=== PATIENT | female | born 1985 | race Two or more races ===

== ENCOUNTER 2019-11-02 09:44 | Emergency (ER) | payer MEDICAID ==
[~2019-11-02] VITALS: Ht 167.6 cm; Wt 82.6 kg
[2019-11-02 09:47] VITALS: BP 109/67
--- NOTE | 2019-11-02 10:32 | NUR ---
PT GIVEN DC INSTRUCTIONS AND SCRIPT. PT EDUCATED REGARDING TRIAMCINOLONE CREAM AND MEDROL RX. PT AMB TO DC DESK WITH STEADY GAIT. NADN AT DC.
== END 2019-11-02 10:31 | disposition home or self-care (01) ==
LOC: ED 10:19
DX: L30.8 Other specified dermatitis (principal)
CPT/HCPCS: 99283

== ENCOUNTER 2019-11-24 15:39 | Emergency (ER) | payer MEDICAID ==
[~2019-11-24] VITALS: Ht 167.6 cm; Wt 83.7 kg
[2019-11-24 16:15] VITALS: BP 143/98
[2019-11-24] MEDS ORDERED: NEOSPORIN OINT. PKT 1 PACKET ONE (16:55)
[2019-11-24] MEDS ORDERED: FAMOTIDINE 20 MG/2 ML ONE (19:20)
== END 2019-11-24 17:19 | disposition home or self-care (01) ==
LOC: ED 16:00
DX: L30.9 Dermatitis, unspecified (principal); F17.200 Nicotine dependence, unspecified, uncomplicated
CPT/HCPCS: 99283

== ENCOUNTER 2019-12-09 08:21 | Emergency (ER) | payer MEDICAID ==
[~2019-12-09] VITALS: Ht 167.6 cm; Wt 82.7 kg
[2019-12-09 08:27] VITALS: BP 119/75
--- NOTE | 2019-12-09 08:51 | NUR ---
PT HERE WITH C/O PAIN AND OPEN SORES TO RIGHT HAND, STATES HX ECZEMA.
--- NOTE | 2019-12-09 09:19 | NUR ---
Patient/Caregiver given discharge instructions and they have confirmed that they understand the instructions. Patient ambulatory with steady gait.
== END 2019-12-09 09:22 | disposition home or self-care (01) ==
LOC: ED 09:00
DX: L20.84 Intrinsic (allergic) eczema (principal); F17.210 Nicotine dependence, cigarettes, uncomplicated; J45.909 Unspecified asthma, uncomplicated
CPT/HCPCS: 99283

== ENCOUNTER 2020-03-24 10:05 | Emergency (ER) | payer MEDICAID ==
[~2020-03-24] VITALS: Ht 167.6 cm; Wt 83.3 kg
[2020-03-24 10:26] VITALS: BP 116/64
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
--- NOTE | 2020-03-24 10:50 | NUR ---
covid swab collected by this RN, walked to lab. EKG taken by EDT and reviewed by ERP. pt awaiting labs and dispo.
--- NOTE | 2020-03-24 10:51 | NUR ---
droplet plus precautions in place .
--- NOTE | 2020-03-24 10:58 | NUR ---
REPORT GIVEN TO LARS TINSLEY, PT AWAITING LABS AND DISPO.
[2020-03-24 11:37] LABS: ANION GAP 6 mmol/L (5-15); CALCIUM 8.3 mg/dL (8.5-10.1); CHLORIDE 111 mmol/L (98-107); CREATININE 0.77 mg/dL (0.55-1.02)
== END 2020-03-24 12:11 | disposition home or self-care (01) ==
LOC: ED 10:52
DX: J45.31 Mild persistent asthma with (acute) exacerbation (principal); Z20.828 Contact with and (suspected) exposure to other viral communicable diseases; L20.84 Intrinsic (allergic) eczema; J02.8 Acute pharyngitis due to other specified organisms; B97.89 Other viral agents as the cause of diseases classified elsewhere; I51.7 Cardiomegaly; F17.200 Nicotine dependence, unspecified, uncomplicated
CPT/HCPCS: 36415; 80048; 82375; 93005; 99284; U0001

== ENCOUNTER 2020-04-04 14:18 | Emergency (ER) | payer MEDICAID ==
[~2020-04-04] VITALS: Ht 167.6 cm; Wt 84.2 kg
--- NOTE | 2020-04-04 14:30 | NUR ---
PATIENT ARRIVES TO ER WITH PAIN FROM UPPER MID ABDOMINAL DOWN TO LOWER ABDOMEN BOTH SIDES. NO NAUSEA, DECREASED APPETITE FOR ONE DAY. NO DIARRHEA. SHE HAS HAD VAGINAL DISCHARGE FOR ONE WEEK THAT IS DARK BLOOD. SHE THINKS MAYBE A YEAST INFECTION, BUT NOT SURE.
--- NOTE | 2020-04-04 14:34 | NUR ---
PATIENT STILL HAS SOME PAIN, BUT NOT WORSENING
--- NOTE | 2020-04-04 15:01 | NUR ---
patient helped up to go to bathroom for urine sample. got on pelvic bed.
[2020-04-04 15:05] LABS: BASOPHILS % (AUTO) 1 % (0-1); EOSINOPHILS # (AUTO) 0.39 x10^3/uL (0-0.4); EOSINOPHILS % (AUTO) 4 % (1-7); LYMPHOCYTES # (AUTO) 2.75 x10^3/uL (1-3.4); LYMPHOCYTES % (AUTO) 31 % (22-44); MD NO; MEAN CORPUSCULAR HEMOGLOBIN 26.8 pg (27.0-34.8); MEAN CORPUSCULAR HGB CONC 32.4 g/dL (32.4-35.8); MEAN CORPUSCULAR VOLUME 82.8 fL (80-100); MEAN PLATELET VOLUME 7.7 fL (7.4-10.4); MONOCYTES # (AUTO) 0.63 x10^3/uL (0.2-0.8); MONOCYTES % (AUTO) 7 % (2-9); NEUTROPHILS # (AUTO) 4.94 x10^3/uL (1.8-6.8); NEUTROPHILS % (AUTO) 56 % (42-75); PLATELET COUNT 474 x10^3/uL (130-400); RED BLOOD COUNT 4.92 x10^6/uL (3.82-5.3); RED CELL DISTRIBUTION WIDTH 15.8 % (9.6-15.2)
--- NOTE | 2020-04-04 15:09 | NUR ---
STAND BY ASSIST PELVIC MD MAYES, NO COMPLICATIONS
[2020-04-04 15:17] LABS: ALANINE AMINOTRANSFERASE 15 U/L (12-78); ALBUMIN 3.6 g/dL (3.4-5.0); ANION GAP 4 mmol/L (5-15); CALCIUM 8.3 mg/dL (8.5-10.1); CHLORIDE 111 mmol/L (98-107); MICROSCOPIC NOT IND
[2020-04-04 15:19] LABS: ALKALINE PHOSPHATASE 98 U/L (45-117); BILIRUBIN,TOTAL 0.3 mg/dL (0.2-1.0); TOTAL PROTEIN 7.2 g/dL (6.4-8.2)
[2020-04-04 15:57] LABS: CLUE CELLS NONE SEEN (NONE SEEN)
[2020-04-04 15:58] LABS: WET PREP WBCS FEW (FEW)
[2020-04-04] MEDS ORDERED: AZITHROMYCIN 500 MG TABLET ONE (16:09)
[2020-04-04] MEDS ORDERED: CEFTRIAXONE 250 MG ONE (16:09)
[2020-04-04 16:13] VITALS: BP 123/78
[2020-04-04] MEDS ORDERED: AZITHROMYCIN 500 MG TABLET PO ONE (16:30)
[2020-04-04] MEDS ORDERED: CEFTRIAXONE 250 MG IM ONE (16:30)
== END 2020-04-04 16:21 | disposition home or self-care (01) ==
LOC: ED 16:02
DX: A54.03 Gonococcal cervicitis, unspecified (principal); A56.09 Other chlamydial infection of lower genitourinary tract; R10.32 Left lower quadrant pain; R10.31 Right lower quadrant pain; J45.909 Unspecified asthma, uncomplicated
CPT/HCPCS: 36415; 80053; 81003; 83690; 85025; 87210; 87491; 87591; 87808; 96372; 99284; J0696; 99283

== ENCOUNTER 2020-04-13 15:08 | Emergency (ER) | payer MEDICAID ==
[~2020-04-13] VITALS: Ht 167.6 cm; Wt 83.8 kg
[2020-04-13 15:16] VITALS: BP 116/74
--- NOTE | 2020-04-13 17:56 | NUR ---
pt ambulated to room from lobby with steady gait, pt states "I just need a work note to say that my eczema isn't covid, and maybe some steroids for the eczema". VS repeated and stable.
[2020-04-13] MEDS ORDERED: DEXAMETHASONE 4 MG TABLET ONE (18:43)
[2020-04-13] MEDS ORDERED: DEXAMETHASONE 4 MG/ML, 1ML ONE (18:46)
[2020-04-13] MEDS ORDERED: DEXAMETHASONE 4 MG/ML, 1ML PO ONE (19:00)
== END 2020-04-13 18:53 | disposition home or self-care (01) ==
LOC: ED 18:45
DX: L50.9 Urticaria, unspecified (principal); R21 Rash and other nonspecific skin eruption; J45.909 Unspecified asthma, uncomplicated; F17.200 Nicotine dependence, unspecified, uncomplicated
CPT/HCPCS: 99283; J1100

== ENCOUNTER 2020-05-27 09:08 | Emergency (ER) | payer MEDICAID ==
[~2020-05-27] VITALS: Ht 167.6 cm; Wt 78.8 kg
--- NOTE | 2020-05-27 09:16 | NUR ---
TATY RN: URINE SAMPLE ORDERED PER PROTOCOL, COLLECTED, LABELED WITH PT., AND SENT TO LAB.
[2020-05-27 09:34] LABS: MICROSCOPIC AUTO
[2020-05-27] MEDS ORDERED: KETOROLAC 30 MG/1 ML IM ONE (10:00)
[2020-05-27] MEDS ORDERED: ONDANSETRON ODT 4 MG PO ONE (10:00)
--- NOTE | 2020-05-27 10:01 | NUR ---
PT TO ROOM FROM LOBBY
[2020-05-27] MEDS ORDERED: KETOROLAC 30 MG/1 ML ONE (10:07)
[2020-05-27] MEDS ORDERED: ONDANSETRON ODT 4 MG ONE (10:07)
[2020-05-27 10:25] LABS: BASOPHILS # (AUTO) 0.07 x10^3/uL (0-0.1); BASOPHILS % (AUTO) 0 % (0-1); EOSINOPHILS # (AUTO) 0.22 x10^3/uL (0-0.4); EOSINOPHILS % (AUTO) 2 % (1-7); LYMPHOCYTES # (AUTO) 1.88 x10^3/uL (1-3.4); LYMPHOCYTES % (AUTO) 13 % (22-44); MD NO; MEAN CORPUSCULAR HEMOGLOBIN 26.1 pg (27.0-34.8); MEAN CORPUSCULAR HGB CONC 31.9 g/dL (32.4-35.8); MEAN CORPUSCULAR VOLUME 81.8 fL (80-100); MONOCYTES # (AUTO) 0.94 x10^3/uL (0.2-0.8); MONOCYTES % (AUTO) 6 % (2-9); NEUTROPHILS % (AUTO) 79 % (42-75); PLATELET COUNT 404 x10^3/uL (130-400); RED BLOOD COUNT 5.18 x10^6/uL (3.82-5.3)
[2020-05-27] MEDS ORDERED: CEFTRIAXONE 1,000 MG IM ONE (10:30)
[2020-05-27 10:35] LABS: ALBUMIN 4.2 g/dL (3.4-5.0); ANION GAP 7 mmol/L (5-15); CALCIUM 8.7 mg/dL (8.5-10.1); CHLORIDE 115 mmol/L (98-107)
[2020-05-27] MEDS ORDERED: CEFTRIAXONE 1,000 MG ONE (10:44)
[2020-05-27 11:48] VITALS: BP 118/77
--- NOTE | 2020-05-27 11:48 | NUR ---
Patient given discharge instructions and Rx, they have confirmed that they understand the instructions. Patient ambulatory with steady gait.
== END 2020-05-27 12:02 | disposition home or self-care (01) ==
LOC: ED 09:26
DX: N10 Acute pyelonephritis (principal); D72.829 Elevated white blood cell count, unspecified; N93.9 Abnormal uterine and vaginal bleeding, unspecified; J45.909 Unspecified asthma, uncomplicated; F17.200 Nicotine dependence, unspecified, uncomplicated
CPT/HCPCS: 36415; 74176; 80048; 81001; 82040; 84703; 85025; 87077; 87086; 96372; 99284; J0696; J1885; Q0162; 87186

== ENCOUNTER 2020-06-17 05:46 | Emergency (ER) | payer OTHER, MEDICAID ==
[~2020-06-17] VITALS: Ht 162.6 cm; Wt 86.0 kg
[2020-06-17] MEDS ORDERED: KETOROLAC 30 MG/1 ML IM ONE (06:00)
[2020-06-17] MEDS ORDERED: METHOCARBAMOL 750 MG TABLET PO ONE (06:00)
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
[2020-06-17] MEDS ORDERED: KETOROLAC 60 MG/2 ML ONE (06:07)
[2020-06-17] MEDS ORDERED: METHOCARBAMOL 750 MG TABLET ONE (06:07)
[2020-06-17 06:44] LABS: BASOPHILS # (AUTO) 0.09 x10^3/uL (0-0.1); BASOPHILS % (AUTO) 1 % (0-1); EOSINOPHILS # (AUTO) 0.12 x10^3/uL (0-0.4); EOSINOPHILS % (AUTO) 1 % (1-7); LYMPHOCYTES # (AUTO) 2.29 x10^3/uL (1-3.4); LYMPHOCYTES % (AUTO) 20 % (22-44); MD NO; MEAN CORPUSCULAR HEMOGLOBIN 26.8 pg (27.0-34.8); MEAN CORPUSCULAR HGB CONC 32.8 g/dL (32.4-35.8); MEAN CORPUSCULAR VOLUME 81.6 fL (80-100); MEAN PLATELET VOLUME 8.4 fL (7.4-10.4); MONOCYTES % (AUTO) 7 % (2-9); NEUTROPHILS # (AUTO) 8.36 x10^3/uL (1.8-6.8); NEUTROPHILS % (AUTO) 72 % (42-75); PLATELET COUNT 373 x10^3/uL (130-400); RED BLOOD COUNT 4.92 x10^6/uL (3.82-5.3)
[2020-06-17 06:51] LABS: ALBUMIN 4.1 g/dL (3.4-5.0); ANION GAP 9 mmol/L (5-15); CALCIUM 8.4 mg/dL (8.5-10.1); CHLORIDE 107 mmol/L (98-107); CREATININE 0.76 mg/dL (0.55-1.02)
--- NOTE | 2020-06-17 06:54 | NUR ---
Pt report to Nikkie marion.
--- NOTE | 2020-06-17 07:00 | NUR ---
REPORT RECEIVED FROM MIRANDA SOUSA.
--- NOTE | 2020-06-17 07:09 | NUR ---
NOC RN GIVEN MED PER EMAR. PT BACK TO ROOM FROM XRAY. PT'S AOX4. RESPS EVEN AND UNLABORED. PT DENIES ANY NEEDS OR CONCERNS AT THIS TIME.
[2020-06-17 07:10] VITALS: BP 114/89
--- NOTE | 2020-06-17 07:41 | NUR ---
Patient given discharge instructions and they have confirmed that they understand the instructions. Patient ambulatory with steady gait.
== END 2020-06-17 07:43 | disposition home or self-care (01) ==
LOC: ED 07:30
DX: S16.1XXA Strain of muscle, fascia and tendon at neck level, initial encounter (principal); N92.0 Excessive and frequent menstruation with regular cycle; J45.909 Unspecified asthma, uncomplicated; F17.200 Nicotine dependence, unspecified, uncomplicated; Z90.49 Acquired absence of other specified parts of digestive tract; V47.5XXA Car driver injured in collision with fixed or stationary object in traffic accident, initial encounter; Y93.89 Activity, other specified; Y92.488 Other paved roadways as the place of occurrence of the external cause; Y99.8 Other external cause status
CPT/HCPCS: 36415; 76830; 80048; 82040; 84703; 85025; 96372; 99284; J1885

== ENCOUNTER 2020-07-25 08:40 | Emergency (ER) | payer MEDICAID, OTHER ==
[~2020-07-25] VITALS: Ht 167.6 cm; Wt 80.9 kg
[2020-07-25 08:46] VITALS: BP 149/89
--- NOTE | 2020-07-25 08:57 | NUR ---
first contact with pt. pt c/o r hand 5th digit swelling and pain x 2 days. pt denies any trauma. pt denies any other sx. pt's aox4. resps even and unlabored. pa at bedside.
[2020-07-25] MEDS ORDERED: HYDROcodone/APAP 5/325 TABLET ONE (09:05)
--- NOTE | 2020-07-25 09:08 | NUR ---
pt medicated per emar. pt tolerated well.
[2020-07-25] MEDS ORDERED: HYDROcodone/APAP 5/325 TABLET PO ONE (09:30)
== END 2020-07-25 10:30 | disposition home or self-care (01) ==
LOC: ED 09:05
DX: L01.00 Impetigo, unspecified (principal); M79.644 Pain in right finger(s); J45.909 Unspecified asthma, uncomplicated
CPT/HCPCS: 99283

== ENCOUNTER 2020-07-26 16:47 | Emergency (ER) | payer MEDICAID ==
[~2020-07-26] VITALS: Ht 167.6 cm; Wt 78.0 kg
[2020-07-26 17:50] LABS: ALBUMIN 3.7 g/dL (3.4-5.0); ANION GAP 8 mmol/L (5-15); CALCIUM 8.4 mg/dL (8.5-10.1); CHLORIDE 109 mmol/L (98-107)
[2020-07-26 17:53] LABS: CREATININE 0.75 mg/dL (0.55-1.02)
[2020-07-26 17:55] LABS: BASOPHILS % (AUTO) 1 % (0-1); EOSINOPHILS % (AUTO) 1 % (1-7); LYMPHOCYTES % (AUTO) 28 % (22-44); MEAN CORPUSCULAR HEMOGLOBIN 26.9 pg (27.0-34.8); MEAN CORPUSCULAR HGB CONC 32.5 g/dL (32.4-35.8); MEAN PLATELET VOLUME 7.8 fL (7.4-10.4); MONOCYTES % (AUTO) 9 % (2-9); NEUTROPHILS % (AUTO) 61 % (42-75); PLATELET COUNT 423 x10^3/uL (130-400); RED BLOOD COUNT 5.11 x10^6/uL (3.82-5.3); RED CELL DISTRIBUTION WIDTH 15.7 % (9.6-15.2)
[2020-07-26 18:00] LABS: MD NO
--- NOTE | 2020-07-26 18:34 | NUR ---
BUSINESS INTELLIGENCE ARCHITECT: PT AMBULATORY TO ROOM WITH STEADY GAIT FROM BASILIO AT THIS TIME WITH PATENT LITIGATION ASSOCIATE
--- NOTE | 2020-07-26 18:53 | NUR ---
REPORT FROM LARS VASQUEZ
[2020-07-26] MEDS ORDERED: LIDOCAINE-MPF 1%, 5ML INFIL ONE (19:00)
[2020-07-26] MEDS ORDERED: IBUPROFEN 600 MG TABLET PO ONE (19:00)
[2020-07-26] MEDS ORDERED: OXYcodone/APAP 5/325MG TABLET PO ONE (19:00)
[2020-07-26] MEDS ORDERED: LIDOCAINE-MPF 1%, 5ML ONE (19:06)
[2020-07-26] MEDS ORDERED: IBUPROFEN 600 MG TABLET ONE (19:06)
[2020-07-26] MEDS ORDERED: OXYcodone/APAP 5/325MG TABLET ONE (19:06)
[2020-07-26 20:04] VITALS: BP 132/76
--- NOTE | 2020-07-26 20:05 | NUR ---
PATIENT DISCHARGED. NO ACUTE DISTRESS NOTED. PATIENT HAS SAFE RIDE HOME. AMBULATORY WITH BELONGINGS TO DISCHARGE DESK WITHOUT COMPLICATIONS. NO ADDITIONAL QUESTIONS FROM PATIENT DURING DISCHARGE EDUCATION.
== END 2020-07-26 20:06 | disposition home or self-care (01) ==
LOC: ED 20:00
DX: L03.011 Cellulitis of right finger (principal); J45.909 Unspecified asthma, uncomplicated; Z90.49 Acquired absence of other specified parts of digestive tract; F17.210 Nicotine dependence, cigarettes, uncomplicated
CPT/HCPCS: 10060; 36415; 80048; 82040; 85025; 99283; 99406

== ENCOUNTER 2020-08-24 15:30 | Emergency (ER) | payer MEDICAID, OTHER ==
[~2020-08-24] VITALS: Ht 167.6 cm; Wt 80.8 kg
[2020-08-24 16:04] LABS: MICROSCOPIC AUTO
--- NOTE | 2020-08-24 16:12 | NUR ---
ERP AT BEDSIDE FOR PELVIC EXAM.
[2020-08-24] MEDS ORDERED: FLUCONAZOLE 100 MG TABLET PO ONE (16:30)
[2020-08-24 16:34] LABS: CLUE CELLS PRESENT (NONE SEEN)
[2020-08-24 16:35] LABS: WET PREP WBCS FEW (FEW)
[2020-08-24 17:04] VITALS: BP 136/90
[2020-08-24] MEDS ORDERED: FLUCONAZOLE 100 MG TABLET ONE (17:05)
--- NOTE | 2020-08-24 17:17 | NUR ---
Patient given discharge instructions and they have confirmed that they understand the instructions. Patient ambulatory with steady gait.
== END 2020-08-24 17:19 | disposition home or self-care (01) ==
LOC: ED 16:31
DX: N76.0 Acute vaginitis (principal); L20.84 Intrinsic (allergic) eczema; R10.2 Pelvic and perineal pain; R30.0 Dysuria; J45.909 Unspecified asthma, uncomplicated; Z90.49 Acquired absence of other specified parts of digestive tract
CPT/HCPCS: 81001; 82962; 87086; 87210; 87491; 87591; 87808; 99283

== ENCOUNTER 2020-10-09 15:53 | Emergency (ER) | payer MEDICAID, OTHER ==
[~2020-10-09] VITALS: Ht 167.6 cm; Wt 82.0 kg
--- NOTE | 2020-10-09 16:07 | NUR ---
COPYRIGHT CLERK NOTE: NO ANSWER WHEN CALLED FROM [facility] X 1
--- NOTE | 2020-10-09 16:37 | NUR ---
NOT IN LOBBY WHEN CALLED SECOND TIME
--- NOTE | 2020-10-09 19:40 | NUR ---
PT TO ROOM FROM LOBBY.
--- NOTE | 2020-10-09 19:51 | NUR ---
PT STATES HAVINBG VLISTERS AND SORES AROUND BODY STARTING ABOUT A WEEK AGO, PT STATES BEING HERE FOR SIMILAR ISSUE IN THE PAST. PT ASKED TO CHANGE INTO GOWN, AWAITING ERP EVAL
[2020-10-09 20:24] VITALS: BP 136/79
[2020-10-09] MEDS ORDERED: MUPIROCIN OINT 2%, 22GM TP ONE (20:30)
--- NOTE | 2020-10-09 20:59 | NUR ---
pt's wounds cleaned and ointment applied, pt undersatnding of d/c instructions.
== END 2020-10-09 21:08 | disposition home or self-care (01) ==
LOC: ED 16:20
DX: L03.116 Cellulitis of left lower limb (principal); L03.011 Cellulitis of right finger; J45.909 Unspecified asthma, uncomplicated
CPT/HCPCS: 99283

== ENCOUNTER 2020-11-07 19:28 | Emergency (ER) | payer MEDICAID, OTHER ==
[~2020-11-07] VITALS: Ht 167.6 cm; Wt 84.5 kg
[2020-11-07 19:32] VITALS: BP 127/87
[2020-11-07] MEDS ORDERED: NEOSPORIN OINT. PKT 1 PACKET ONE ×3 (19:39→20:34)
--- NOTE | 2020-11-07 19:41 | NUR ---
PROVIDER AT BEDSIDE
--- NOTE | 2020-11-07 19:44 | NUR ---
XRAY AT BEDSIDE
--- NOTE | 2020-11-07 19:46 | NUR ---
PT COMES IN TODAY C/O PAIN, REDNESS, SWELLING TO BOTTOM OF RIGHT FOOT. STATES IT STARTED YESTERDAY. PT STATES SHE ELEVATED HER FOOT THIS AFTERNOON AND THE SWELLING DECREASED. ON ASSESSMENT, REDNESS NOTED TO BOTTOM OF RIGHT FOOT AT SITE OF SMALL WOUND. MONITORS CONNECTED. VSS. NAD. CALL LIGHT W/IN REACH.
== END 2020-11-07 20:40 | disposition home or self-care (01) ==
LOC: ED 19:48
DX: L03.115 Cellulitis of right lower limb (principal); J45.909 Unspecified asthma, uncomplicated; Z90.49 Acquired absence of other specified parts of digestive tract
CPT/HCPCS: 99283

== ENCOUNTER 2020-12-14 23:10 | Emergency (ER) | payer MEDICAID, OTHER ==
[~2020-12-14] VITALS: Ht 167.6 cm; Wt 87.2 kg
[2020-12-14] MEDS ORDERED: LORazepam 1MG TABLET PO ONE (23:30)
[2020-12-14] MEDS ORDERED: LORazepam 1MG TABLET ONE (23:38)
[2020-12-14 23:44] LABS: BASOPHILS % (AUTO) 1 % (0-1); EOSINOPHILS % (AUTO) 1 % (1-7); LYMPHOCYTES % (AUTO) 22 % (22-44); MD NO; MEAN CORPUSCULAR HEMOGLOBIN 28.5 pg (27.0-34.8); MEAN CORPUSCULAR HGB CONC 34.1 g/dL (32.4-35.8); MEAN PLATELET VOLUME 7.8 fL (7.4-10.4); MONOCYTES % (AUTO) 6 % (2-9); NEUTROPHILS % (AUTO) 70 % (42-75); PLATELET COUNT 404 x10^3/uL (130-400); RED BLOOD COUNT 5.18 x10^6/uL (3.82-5.3); RED CELL DISTRIBUTION WIDTH 14.9 % (9.6-15.2)
[2020-12-14 23:57] LABS: ALANINE AMINOTRANSFERASE 25 U/L (12-78); ALBUMIN 4.5 g/dL (3.4-5.0); ANION GAP 10 mmol/L (5-15); CALCIUM 8.9 mg/dL (8.5-10.1); CHLORIDE 108 mmol/L (98-107); CREATININE 0.71 mg/dL (0.55-1.02)
[2020-12-15 00:07] LABS: ALKALINE PHOSPHATASE 115 U/L (45-117); BILIRUBIN,TOTAL 0.5 mg/dL (0.2-1.0); TOTAL PROTEIN 8.3 g/dL (6.4-8.2)
[2020-12-15 01:36] VITALS: BP 148/106
== END 2020-12-15 01:45 | disposition home or self-care (01) ==
LOC: ED 12-15 01:34
DX: R00.2 Palpitations (principal); L30.9 Dermatitis, unspecified; R00.0 Tachycardia, unspecified; J45.909 Unspecified asthma, uncomplicated; Z90.49 Acquired absence of other specified parts of digestive tract
CPT/HCPCS: 36415; 80053; 84439; 84443; 84703; 85025; 93005; 99284; J7512